=== PATIENT | female | born 1990 | race Caucasian/White ===

== ENCOUNTER 2017-03-26 18:34 | Inpatient (IN) ==
[2017-03-26] MEDS ORDERED: Vancomycin 1,000 MG in D5% in Water 250 ML IVPB ONE (19:17)
[2017-03-26] MEDS ORDERED: 0.9 % Sodium Chloride 1,000 ML IVC ONE (19:17)
--- NOTE | 2017-03-26 19:25 | Emergency Department Note ---
Disposition Clinical Impression: Abscess Disposition: Admitted As Inpatient Condition: Good Referrals: NONE,PCP [Primary Care Provider] - Forms: Work/School Release, ED Satisfaction Letter Time of Disposition: 22:32 Wound/Laceration HPI - General Chief Complaint: ED Wound/Laceration Stated Complaint: lump/abcess on throat Time Seen by Provider: 03/26/17 18:42 Source: patient Limitations: no limitations Nursing Notes Reviewed: Yes Vital Signs Reviewed: Yes - History of Present Illness HPI Narrative: 26 year old female presents to the ED for outpaeint therapy of ABX therapy for an abscess located on her sternal notch of her neck. Jayashree states that this popped up on Monday and that she was seen at urgent care where it was I/D and then placed on bactrim and then the redeness and swelling have been getting worse. Patient states denies fevers, nasuea, or vomitting, difficulty in breathing or swellling to her throat. Jayashree min she - Related Data Previous Rx's Medication Instructions Recorded Ibuprofen [Motrin] 600 mg PO Q8HR PRN #10 tab 04/29/16 Albuterol Sulfate [Albuterol 2 puff IH Q6HR PRN #1 [id number].[email or web address] 06/23/16 Inhaler] HYDROcodone/Acet 5/325 mg [[place] 1 tab PO Q6H PRN #8 tab 10/20/16 5-325 mg] Ibuprofen [Motrin] 800 mg PO Q8HR #30 tablet 03/24/17 Sulfamethoxazole/Trimeth DS 1 each PO BID #20 tablet 03/24/17 [Bactrim DS] Allergies Allergy/AdvReac Type Severity Reaction Status Date / Time Varenicline [From Chantix] Allergy Hallucinati Verified 10/20/16 19:43 ng Constitutional: Reports: other (neck abscess). Denies: fever, chills, weakness , weight change Eyes: Denies: eye pain, eye discharge, vision change ENT ED: Denies: ear pain, throat pain, dental pain, hearing loss, epistaxis, congestion, dysphagia Cardiovascular: Denies: chest pain, palpitations, dyspnea on exertion, edema, syncope Respiratory: Denies: cough, dyspnea, wheezes, hemoptysis, stridor Gastrointestinal: Denies: abdominal pain, nausea, vomiting, diarrhea, constipation, hematemesis, melena, hematochezia Genitourinary: Denies: dysuria, frequency, hematuria, discharge Musculoskeletal: Denies: back pain, neck pain, arthralgia, myalgia Integumentary: Denies: rash, abrasion, lesions Neurological: Denies: headache, weakness, numbness, paresthesias, confusion, abnormal gait, vertigo Psychiatric: Denies: anxiety, depression, suicidal thoughts, homicidal thoughts , auditory hallucinations, visual hallucinations Endocrine: Denies: fatigue Hematological/Lymphatic: Denies: easy bleeding, easy bruising Allergic/Immunologic: Denies: facial swelling, urticaria Past Medical History - Past Medical History Medical history: Reports: non-contributory, other Psychiatric history: Reports: no psych history [employer] history: Reports: bilateral tubal ligation - Social History Smoking Status: Current every day smoker Smokeless Tobacco Status: No Alcohol use: Reports: none Drug use: Reports: none Physical Exam - General Limitations: no limitations General appearance: in no apparent distress - Head Head exam: atraumatic, normocephalic, normal inspection - Eye Eye exam: Present: normal appearance, PERRL, EOMI - Expanded Eye Exam Pupils: Left: reactive - ENT ENT exam: normal exam, normal oropharynx, mucous membranes moist - Expanded ENT Exam External ear exam: Present: normal external inspection Mouth exam: Present: normal external inspection Teeth exam: Present: normal inspection Throat exam: Present: normal inspection - Neck Neck exam: Present: normal inspection, full ROM, trachea midline, other (1cm abscess on the sternal notch) - Chest Chest inspection: Present: normal inspection, symmetric chest wall rise - Respiratory Respiratory exam: Present: normal lung sounds bilaterally - Cardiovascular Cardiovascular exam: Present: normal rhythm, tachycardia, normal heart sounds - Abdominal Exam Abdominal exam: Present: soft, Non-Tender. Absent: tenderness, distention, guarding, rebound, rigidity - Extremities Exam Extremities exam: Present: normal inspection, full ROM. Absent: tenderness, pedal edema - Expanded Upper Extremity Exam Shoulder exam: Present: normal inspection, full ROM Arm exam: Present: normal inspection, full ROM Elbow exam: Present: normal inspection, full ROM Forearm/Wrist exam: Present: normal inspection, full ROM Hand exam: Present: normal inspection, full ROM Vascular exam: Normal: capillary refill, radial pulse - Expanded Lower Extremity Exam Hip/Pelvis exam: Present: normal inspection, full ROM Upper leg exam: Present: normal inspection, full ROM Knee exam: Present: normal inspection, full ROM Lower leg exam: Present: normal inspection, full ROM Ankle exam: Present: normal inspection, full ROM Foot/toe exam: Present: normal inspection, full ROM Neurovascular/Tendon exam: Absent: motor deficit, sensory deficit, tendon deficit - Back Exam Back exam: Present: normal inspection, full ROM. Absent: tenderness - Neurological Exam Neurological exam: Present: alert, oriented X3 - Expanded Neurological Exam Patient oriented to: Present: person, place, time Coma Scale Eye Opening: Spontaneous Coma Scale Motor Response: Obeys Commands Coma Scale Verbal Response: Oriented Coma Scale Total: 15 - Psychiatric Psychiatric exam: Present: normal affect, normal mood - Skin Skin exam: Present: warm, dry, intact, normal color Course Course Narrative: we will do a abscesss workup with admit to medicine due to failure of outpatinet therapy - Consultations Consultation #1: discussed case with Dr. Andrade and she accepts patinet for admission. Time: 22:32 Vital Signs Temperature 99.3 F 03/26/17 18:35 Pulse Rate 104 03/26/17 18:35 Respiratory Rate 20 03/26/17 18:35 Blood Pressure 128/82 03/26/17 18:35 O2 Sat by Pulse Oximetry 98 03/26/17 18:35 Temperature 99.3 F 03/26/17 18:35 Pulse Rate 100 03/26/17 18:42 Respiratory Rate 20 03/26/17 18:35 Blood Pressure 139/63 03/26/17 18:42 O2 Sat by Pulse Oximetry 100 03/26/17 18:42 Oxygen Delivery Oxygen Delivery Room Air Procedures - Abscess I/D Consent obtained: verbal consent Site: neck Sedation/analgesia: none Technique: incised with #11 blade Amount of fluid: 3 (cc) Irrigation: No Packing used?: none Complications: bleeding Wound/Laceration - Lab Data Result diagrams: 03/26/17 19:50 03/26/17 19:50 Lab Results 03/26/17 03/26/17 03/26/17 Range/Units 19:50 19:50 19:50 WBC 12.6 H (4.3-11.1) K/mcL RBC 4.16 (3.82-4.97) M/mcL Hgb 10.5 L (11.5-15.4) g/dL Hct 33.2 L (35.3-44.9) % MCV 79.8 L (83.0-100.0) fL MCH 25.2 L (28.0-33.3) pg MCHC 31.6 (31.6-35.5) g/dL RDW 15.0 H (11.5-14.5) % Plt Count 256 (140-400) K/mcL MPV 11.0 (9.4-12.4) fL Immature Gran % 0.4 (0-4) % Seg Neutrophils % 69.9 % Lymphocytes % 24.1 % Monocytes % 4.3 % Eosinophils % 0.9 % Basophils % 0.4 % Neutrophils # 8.8 (1.6-8.9) K/mcL Lymphocytes # 3.0 (0.6-4.6) K/mcL Monocytes # 0.5 (0.0-1.3) K/mcL Eosinophils # 0.1 (0.0-0.6) K/mcL Basophils # 0.1 (0.0-0.2) K/mcL Immature Plt Fraction 3.9 (1.1-6.1) % Sodium 141 (136-145) mEq/L Potassium 3.8 (3.5-4.5) mEq/L Chloride 111 H (98-109) mEq/L Carbon Dioxide 19 (19-29) mEq/L BUN 14 (7-20) mg/dL Creatinine 0.98 (0.57-1.11) mg/dL Est GFR ( Amer) > 60 (> 60) Est GFR (Non-Af Amer) > 60 (> 60) BUN/Creatinine Ratio 14 (6-26) Glucose 81 (70-99) mg/dL Calculated Osmolality 292 (280-300) Lactic Acid 0.9 (0.5-2.2) mmol/L Calcium 9.0 (8.6-10.8) mg/dL Total Bilirubin < 0.2 L (0.2-1.2) mg/dL AST 16 (5-34) Units/L ALT 22 (0-55) Units/L Alkaline Phosphatase 86 (38-126) Units/L Serum Total Protein 7.4 (6.0-8.3) g/dL Albumin 3.6 (3.5-5.0) g/dL Globulin 3.8 H (2.4-3.5) g/dL Albumin/Globulin Ratio 0.9 L (1.1-2.2) Serum , Qual (Negative) 03/26/17 Range/Units 20:44 WBC (4.3-11.1) K/mcL RBC (3.82-4.97) M/mcL Hgb (11.5-15.4) g/dL Hct (35.3-44.9) % MCV (83.0-100.0) fL MCH (28.0-33.3) pg MCHC (31.6-35.5) g/dL RDW (11.5-14.5) % Plt Count (140-400) K/mcL MPV (9.4-12.4) fL Immature Gran % (0-4) % Seg Neutrophils % % Lymphocytes % % Monocytes % % Eosinophils % % Basophils % % Neutrophils # (1.6-8.9) K/mcL Lymphocytes # (0.6-4.6) K/mcL Monocytes # (0.0-1.3) K/mcL Eosinophils # (0.0-0.6) K/mcL Basophils # (0.0-0.2) K/mcL Immature Plt Fraction (1.1-6.1) % Sodium (136-145) mEq/L Potassium (3.5-4.5) mEq/L Chloride (98-109) mEq/L Carbon Dioxide (19-29) mEq/L BUN (7-20) mg/dL Creatinine (0.57-1.11) mg/dL Est GFR ( Amer) (> 60) Est GFR (Non-Af Amer) (> 60) BUN/Creatinine Ratio (6-26) Glucose (70-99) mg/dL Calculated Osmolality (280-300) Lactic Acid (0.5-2.2) mmol/L Calcium (8.6-10.8) mg/dL Total Bilirubin (0.2-1.2) mg/dL AST (5-34) Units/L ALT (0-55) Units/L Alkaline Phosphatase (38-126) Units/L Serum Total Protein (6.0-8.3) g/dL Albumin (3.5-5.0) g/dL Globulin (2.4-3.5) g/dL Albumin/Globulin Ratio (1.1-2.2) Serum , Qual Negative (Negative)
[2017-03-26 19:57] LABS: Basophils # 0.1 K/mcL (0.0-0.2); Basophils % 0.4 %; Eosinophils # 0.1 K/mcL (0.0-0.6); Eosinophils % 0.9 %; Hematocrit 33.2 % (35.3-44.9); Hemoglobin 10.5 g/dL (11.5-15.4); Immature Granulocytes % 0.4 % (0-4); Immature Platelets 3.9 % (1.1-6.1); Lymphocytes % 24.1 %; Mean Corpuscular HGB Conc 31.6 g/dL (31.6-35.5); Mean Corpuscular Hemoglobin 25.2 pg (28.0-33.3); Mean Corpuscular Volume 79.8 fL (83.0-100.0); Monocytes # 0.5 K/mcL (0.0-1.3); Monocytes % 4.3 %; Neutrophils # 8.8 K/mcL (1.6-8.9); Platelet Count 256 K/mcL (140-400); Red Blood Count 4.16 M/mcL (3.82-4.97); Segmented Neutrophils % 69.9 %
[2017-03-26 20:10] LABS: Alanine Aminotransferase 22 Units/L (0-55); Albumin 3.6 g/dL (3.5-5.0); Albumin/Globulin Ratio 0.9 (1.1-2.2); Alkaline Phosphatase 86 Units/L (38-126); Aspartate Amino Transferase 16 Units/L (5-34); BUN/Creatinine Ratio 14 (6-26); Bilirubin,Total < 0.2 mg/dL (0.2-1.2); Blood Urea Nitrogen 14 mg/dL (7-20); Carbon Dioxide 19 mEq/L (19-29); Chloride 111 mEq/L (98-109); Globulin 3.8 g/dL (2.4-3.5); Glucose 81 mg/dL (70-99); Osmolality,Calculated 292 (280-300); Potassium 3.8 mEq/L (3.5-4.5); Sodium 141 mEq/L (136-145); Total Protein 7.4 g/dL (6.0-8.3); eGFR For African Americans > 60 (> 60); eGFR For Non-African Americans > 60 (> 60)
[2017-03-26] MEDS ORDERED: Piperacillin/Tazobactam 3.375 GM in D5% in Water (Mini-Bag+) 100 ML IVPB ONE (20:24)
[2017-03-26] MEDS ORDERED: Ondansetron 4 MG/2 ML VIAL IVP PRN (23:14)
[2017-03-26] MEDS ORDERED: Naloxone 0.4 MG/ML INJ IVP PRN (23:14)
[2017-03-26] MEDS ORDERED: Acetaminophen 325 MG TABLET PO PRN (23:14)
[2017-03-26] MEDS ORDERED: Ipratropium/Albuterol Neb 3 ML IH PRN (23:21)
--- NOTE | 2017-03-26 23:38 | Internal Med History&Physical ---
Date of Encounter: 03/26/17 Time of Encounter: 11:56 Assessment and Plan (1) Sepsis Current visit: Yes Status: Acute Patient meets sepsis criteria with tachycardia on presentation, leukocytosis with WBC >12, and neck cellulitis with abscess Patient's abscess was drained by the ER team and sent for culture Continue Vanco and Zosyn for now Follow wound and blood culture and de-escalate prn BP is WNL, Lactic acid is normal Qualifiers: Sepsis type: sepsis due to unspecified organism Qualified Code(s): A41.9 - Sepsis, unspecified organism (2) Abscess Current visit: Yes Status: Acute As above (3) Morbid obesity with BMI of 40.0-44.9, adult Current visit: Yes Status: Chronic Lifestyle modification (4) Tobacco abuse Current visit: Yes Status: Chronic Smokes 1/2 to 1PPD Declines counselling/NRT (5) Anemia Current visit: Yes Status: Chronic Microcytic anemia, possibly iron deficiency Send anemia work up with a.m labs Qualifiers: Anemia type: unspecified type Qualified Code(s): D64.9 - Anemia, unspecified Internal Medicine - H&P: HPI Chief complaint: Neck cellulitis Admitted From: Home Plans for Post Hospital Care: Home History of present illness: Ms. Feliciano is a 26 year old female with no significant medical history who had been to the ER two days ago for a neck furuncle with cellulitis, she was discharged home on Bactrim but represents with worsening pain and swelling She denies fever or chills Her lower neck was drained with a needle by ER and sample sent for culture She denies hx of trauma, insect bite, prior instrumentaton, she denies human bite She also reported subjective chills but no fever She denies any other symptoms Past Med Surg Social Fam HX - Past Medical History Medical history: non-contributory, other Psychiatric history: no psych history - Social History Smoking Status: Current every day smoker Smokeless Tobacco Status: No Alcohol use: none Drug use: none Internal Medicine - H&P: Meds Ibuprofen [Motrin] 800 mg PO Q8HR #30 tablet 03/24/17 [Rx] Sulfamethoxazole/Trimeth DS [Bactrim DS] 1 each PO BID #20 tablet 03/24/17 [Rx] 3 Allergy/AdvReac Type Severity Reaction Status Date / Time Varenicline [From Chantix] Allergy Hallucinati Verified 10/20/16 19:43 ng All Systems PM: A 10-system review of systems was performed and is negative for pertinent findings except as documented above in the HPI. - Constitutional Constitutional: chills, no fever(s), no night sweats - EENT Eyes: as per HPI, no change in vision, no discharge, no pain, no photophobia Nose, mouth and throat: no dysphagia, no nasal discharge, no neck pain, no sore throat - Cardiovascular Cardiovascular ROS IM: no chest pain, no diaphoresis, no dyspnea, no lightheadedness, no palpitations, no syncope - Respiratory Respiratory: no cough, no dyspnea, no wheezing, no excessive phlegm production - Gastrointestinal Gastrointestinal: no abdominal pain, no diarrhea, no hematemesis, no hematochezia, no melena, no nausea, no vomiting - Genitourinary Genitourinary: no change in urinary stream, no dysuria, no flank pain, no hematuria - Musculoskeletal Musculoskeletal ROS IM: no numbness, no tingling - Integumentary Integumentary IM: as per HPI - Neurological Neurological ROS: no confusion, no convulsions, no focal weakness, no numbness, no tingling, no tremor(s) - Hematologic/Lymphatic Hematologic/Lymphatic: no easy bruising - Constitutional Vitals: Temp Pulse Resp BP Pulse Ox 97.9 F 84 16 111/74 94 03/26/17 23:15 03/26/17 23:15 03/26/17 23:15 03/26/17 23:15 03/26/17 23:15 General appearance: Present: A&O X 3, morbidly obese, pleasant, no acute distress, answers questions appropriately - Head Head exam: Present: atraumatic, normocephalic - Eye Eye exam: Present: PERRL, conjuntiva pink, sclera anicteric Pupils: Present: PERRL - Neck Neck exam general surgery: Absent: lymphadenopathy Additional comments: Lower anterior neck ~2X2cm swelling, with some fluctuancy and surrounding cellulitis - Respiratory Respiratory exam: Present: CTAB. Absent: accessory muscle use, rales, rhonchi, wheezes - Cardiovascular Cardiovascular exam: Present: RRR, +S1, +S2. Absent: diastolic murmur, gallop, rubs, systolic murmur - GI/Abdominal GI/Abdominal exam: Present: normal bowel sounds, soft, no peritoneal signs. Absent: distended, tenderness - Extremities Exam Extremities exam: Present: warm, radial pulses palpable and symmetrical. Absent : calf tenderness, cyanotic, pedal edema - Neurological Exam Neurological exam: Present: alert, CN II-XII intact, oriented X3, no focal deficits. Absent: pronater drift, facial droop, speech deficit - Skin Skin exam: Present: dry, intact Internal Med - H&P Results - Labs CBC & Chem 7: 03/26/17 19:50 03/26/17 19:50
[2017-03-27] MEDS ORDERED: Vancomycin 1,000 MG in D5% in Water 250 ML IVPB ONE
[2017-03-27] MEDS: *HR* HYDROcodone/Acet 5/325 mg TABLET PO PRN ×4 (00:56→22:46)
[2017-03-27 04:26] LABS: Basophils # 0.1 K/mcL (0.0-0.2); Basophils % 0.5 %; Eosinophils # 0.1 K/mcL (0.0-0.6); Eosinophils % 1.1 %; Hematocrit 34.1 % (35.3-44.9); Hemoglobin 10.8 g/dL (11.5-15.4); Immature Granulocytes % 0.3 % (0-4); Lymphocytes # 3.5 K/mcL (0.6-4.6); Lymphocytes % 34.1 %; Mean Corpuscular HGB Conc 31.7 g/dL (31.6-35.5); Mean Corpuscular Hemoglobin 25.9 pg (28.0-33.3); Mean Corpuscular Volume 81.8 fL (83.0-100.0); Mean Platelet Volume 11.2 fL (9.4-12.4); Monocytes # 0.5 K/mcL (0.0-1.3); Monocytes % 4.8 %; Platelet Count 257 K/mcL (140-400); Red Blood Count 4.17 M/mcL (3.82-4.97); Red Cell Distribution Width 15.1 % (11.5-14.5); Segmented Neutrophils % 59.2 %
[2017-03-27 04:48] LABS: % Iron Saturation 12 % (15-50); Iron 37 mcg/dL (50-170); Transferrin 223 mg/dL (180-382)
[2017-03-27 05:08] LABS: Ferritin 16 ng/ml (5-204)
[2017-03-27] MEDS: Piperacillin/Tazobactam 3.375 GM in D5% in Water (Mini-Bag+) 100 ML IVPB SCH ×3 (05:18→19:50)
[2017-03-27] MEDS: *HR* Heparin 5,000 UNIT/ML VIAL SQ SCH ×3 (05:19→22:46)
[2017-03-27] MEDS ORDERED: Vancomycin 1,000 MG in D5% in Water 250 ML IVPB SCH (06:45)
[2017-03-27] MEDS ORDERED: Vancomycin 2,000 MG in D5% in Water 500 ML IVPB SCH (13:00)
--- NOTE | 2017-03-27 14:55 | Internal Med Progress Note ---
<Kalli Han - Last Filed: 03/27/17 14:53> Date of Encounter: 03/27/17 Time of Encounter: 14:53 - Assessment and plan (1) Sepsis Current Visit: Yes Status: Acute Assessment and plan: upon presentation, patient met sepsis criteria with tacycardia, leukocytosis souce of infection likely secondary to neck abscess, which was drained in the ER and sent for culture. Lactic acid .9 Plan: blood cultures pending wound cultures pending continue with vanc and zosyn and de-escalate antibiotics as appropriate. Qualifiers: Sepsis type: sepsis due to unspecified organism Qualified Code(s): A41.9 - Sepsis, unspecified organism (2) Abscess Current Visit: Yes Status: Acute Assessment and plan: plan as above. (3) Morbid obesity with BMI of 40.0-44.9, adult Current Visit: Yes Status: Chronic (4) Tobacco abuse Current Visit: Yes Status: Chronic Assessment and plan: patient smokes about 1/2-1PPD patient is declining counseling/NRT (5) Anemia Current Visit: Yes Status: Chronic Assessment and plan: microcytic anemia likely iron deficiency. iron profile shows ferritin of 16 and iron level 37. Plan: continue to monitor H/H started iron supplements. colace PRN for constipation. Qualifiers: Anemia type: unspecified type Qualified Code(s): D64.9 - Anemia, unspecified (6) DVT prophylaxis Current Visit: Yes Status: Acute Assessment and plan: Heparin SQ - Subjective Interval history: 26 year ld female evaluated at bedside. she was sitting up in bed and watching tv. she denies admits to nausea without vomiting. she denies diarrhea, fever, chills, chest pain, shortness of breath. she denies any further problems today. - Constitutional Vitals: Temp Pulse Resp BP Pulse Ox 98.1 F 79 16 114/71 97 03/27/17 11:26 03/27/17 11:26 03/27/17 11:26 03/27/17 11:26 03/27/17 11:26 General appearance: Present: A&O X 3, morbidly obese, pleasant, no acute distress, answers questions appropriately - Head Head exam: Present: atraumatic, normocephalic - Neck Neck exam general surgery: Present: supple, trachea midline Additional comments: furuncle located at base of neck/upper chest area. approxiately [id number] in size - Respiratory Respiratory exam: Present: CTAB - Cardiovascular Cardiovascular exam: Present: RRR, +S1, +S2 - GI/Abdominal GI/Abdominal exam: Present: normal bowel sounds, soft. Absent: distended, tenderness - Extremities Exam Extremities exam: Absent: cyanotic, pedal edema - Neurological Exam Neurological exam: Present: alert, oriented X3, no focal deficits - Psychiatric Psychiatric exam: Present: normal affect, normal mood - Skin Skin exam: Present: intact Internal Medicine: Result - Labs CBC & Chem 7: 03/27/17 04:02 03/26/17 19:50 Labs: Short CBC 03/27/17 Range/Units 04:02 WBC 10.2 (4.3-11.1) K/mcL Hgb 10.8 L (11.5-15.4) g/dL Hct 34.1 L (35.3-44.9) % Plt Count 257 (140-400) K/mcL Neutrophils # 6.0 (1.6-8.9) K/mcL Consult Discharge Plan - Plan Referrals: NONE,PCP [Primary Care Provider] - <Elias Morales - Last Filed: 03/27/17 19:23> Date of Encounter: 03/27/17 - Constitutional Vitals: Temp Pulse Resp BP Pulse Ox 98.0 F 76 16 105/67 98 03/27/17 18:48 03/27/17 18:48 03/27/17 18:48 03/27/17 18:48 03/27/17 18:48 Internal Medicine: Result - Labs CBC & Chem 7: 03/27/17 04:02 03/26/17 19:50 Labs: Short CBC 03/27/17 Range/Units 04:02 WBC 10.2 (4.3-11.1) K/mcL Hgb 10.8 L (11.5-15.4) g/dL Hct 34.1 L (35.3-44.9) % Plt Count 257 (140-400) K/mcL Neutrophils # 6.0 (1.6-8.9) K/mcL - Attending Attestation I examined this patient and my medical decision-making was reviewed with the Resident Physician, Dr. Han. I agree with the documented findings, disposition and treatment plan as described except to the extent set forth below. My findings are summarized below: On exam there is erythema and induration of the anterior neck, no discharge or fluctuance. Plan we will continue to treat her with broad-spectrum antibiotics for next cellulitis.
[2017-03-27] MEDS: Ibuprofen 600 MG TABLET PO PRN (19:51)
[2017-03-28] MEDS: Vancomycin 1,250 MG in D5% in Water 250 ML IVPB SCH ×2 (00:53→12:56)
[2017-03-28] MEDS: Piperacillin/Tazobactam 3.375 GM in D5% in Water (Mini-Bag+) 100 ML IVPB SCH ×3 (04:05→19:56)
[2017-03-28] MEDS: *HR* Heparin 5,000 UNIT/ML VIAL SQ SCH ×3 (06:07→22:17)
--- NOTE | 2017-03-28 06:44 | Internal Med Progress Note ---
<Kalli Han - Last Filed: 03/28/17 13:29> Date of Encounter: 03/28/17 Time of Encounter: 06:42 - Assessment and plan (1) Sepsis Current Visit: Yes Status: Acute Assessment and plan: upon presentation, patient met sepsis criteria with tacycardia, leukocytosis source of infection likely secondary to neck abscess, which was drained in the ER and sent for culture. Lactic acid .9 Plan: blood cultures showed no growth to date. wound cultures pending continue with vanc and zosyn and de-escalate antibiotics based on wound cultures. Qualifiers: Sepsis type: sepsis due to unspecified organism Qualified Code(s): A41.9 - Sepsis, unspecified organism (2) Abscess Current Visit: Yes Status: Acute Assessment and plan: plan as above. (3) Morbid obesity with BMI of 40.0-44.9, adult Current Visit: Yes Status: Chronic (4) Tobacco abuse Current Visit: Yes Status: Chronic Assessment and plan: patient smokes about 1/2-1PPD patient is declining counseling/NRT (5) Anemia Current Visit: Yes Status: Chronic Assessment and plan: microcytic anemia likely iron deficiency. iron profile shows ferritin of 16 and iron level 37. Plan: continue to monitor H/H started iron supplements. colace PRN for constipation. Qualifiers: Anemia type: unspecified type Qualified Code(s): D64.9 - Anemia, unspecified (6) DVT prophylaxis Current Visit: Yes Status: Acute Assessment and plan: Heparin SQ - Subjective Interval history: 26 year old female evaluated at bedside. she was sitting up in bed and watching tv. she denies admits to nausea without vomiting. she denies diarrhea, fever, chills, chest pain, shortness of breath. she denies any further problems today. - Constitutional Vitals: Temp Pulse Resp BP Pulse Ox 97.4 F L 54 16 92/52 97 03/28/17 03:42 03/28/17 03:42 03/28/17 03:42 03/28/17 03:42 03/28/17 03:42 General appearance: Present: A&O X 3, morbidly obese, pleasant, no acute distress, answers questions appropriately - Head Head exam: Present: atraumatic, normocephalic - Neck Neck exam general surgery: Present: supple, trachea midline Additional comments: [id number] abscess on neck that is erythematous and mildly swollen. - Respiratory Respiratory exam: Present: CTAB - Cardiovascular Cardiovascular exam: Present: RRR, +S1, +S2 - GI/Abdominal Additional comments: obese, soft, non distended, nontender, positive bowel sounds. - Extremities Exam Extremities exam: Absent: cyanotic, pedal edema - Neurological Exam Neurological exam: Present: alert, oriented X3, no focal deficits - Psychiatric Psychiatric exam: Present: normal affect, normal mood - Skin Skin exam: Present: intact Internal Medicine: Result - Labs CBC & Chem 7: 03/28/17 06:06 03/28/17 06:06 Consult Discharge Plan - Plan Referrals: NONE,PCP [Primary Care Provider] - <Elias Morales - Last Filed: 03/29/17 07:49> Date of Encounter: 03/28/17 - Constitutional Vitals: Temp Pulse Resp BP Pulse Ox 97.8 F 77 16 105/58 97 03/29/17 07:10 03/29/17 07:10 03/29/17 07:10 03/29/17 07:10 03/29/17 07:10 Internal Medicine: Result - Labs CBC & Chem 7: 03/29/17 05:05 03/29/17 05:05 Labs: Short CBC 03/29/17 Range/Units 05:05 WBC 6.1 (4.3-11.1) K/mcL Hgb 9.6 L (11.5-15.4) g/dL Hct 30.7 L (35.3-44.9) % Plt Count 227 (140-400) K/mcL Neutrophils # 3.1 (1.6-8.9) K/mcL BMP 03/29/17 05:05 Sodium 138 Potassium 4.2 Chloride 110 H Carbon Dioxide 22 BUN 16 Creatinine 0.71 Glucose 90 Calcium 8.7 - Attending Attestation I examined this patient and my medical decision-making was reviewed with the Resident Physician, Dr. Han. I agree with the documented findings, disposition and treatment plan as described except to the extent set forth below. I have independently obtained history and examined the patient and my findings are summarized below: She reports anterior cervical pain which radiates to the left side of the neck. On exam there is an area of redness and superficial subcutaneous tissue edema well-circumscribed in the anterior cervical region. Plan: Continue with IV vancomycin and IV Zosyn. We will consider repeating CT scan of the neck symptoms do not improve in the next 24 hours. She is at high risk for morbidity and complications due to IV vancomycin which requires intensive blood level monitoring for toxicity.
[2017-03-28 06:59] LABS: Basophils % 0.5 %; Eosinophils # 0.1 K/mcL (0.0-0.6); Eosinophils % 1.7 %; Hematocrit 33.6 % (35.3-44.9); Hemoglobin 10.6 g/dL (11.5-15.4); Immature Granulocytes % 0.2 % (0-4); Lymphocytes # 2.7 K/mcL (0.6-4.6); Lymphocytes % 47.1 %; Mean Corpuscular HGB Conc 31.5 g/dL (31.6-35.5); Mean Corpuscular Hemoglobin 25.8 pg (28.0-33.3); Mean Corpuscular Volume 81.8 fL (83.0-100.0); Mean Platelet Volume 11.6 fL (9.4-12.4); Monocytes # 0.3 K/mcL (0.0-1.3); Monocytes % 5.7 %; Neutrophils # 2.6 K/mcL (1.6-8.9); Platelet Count 216 K/mcL (140-400); Red Blood Count 4.11 M/mcL (3.82-4.97); Red Cell Distribution Width 15.1 % (11.5-14.5); Segmented Neutrophils % 44.8 %
[2017-03-28 07:09] LABS: BUN/Creatinine Ratio 19 (6-26); Blood Urea Nitrogen 13 mg/dL (7-20); Calcium 8.7 mg/dL (8.6-10.8); Carbon Dioxide 20 mEq/L (19-29); Chloride 109 mEq/L (98-109); Glucose 90 mg/dL (70-99); Osmolality,Calculated 286 (280-300); Potassium 4.2 mEq/L (3.5-4.5); Sodium 138 mEq/L (136-145); eGFR For African Americans > 60 (> 60); eGFR For Non-African Americans > 60 (> 60)
[2017-03-28] MEDS: *HR* HYDROcodone/Acet 5/325 mg TABLET PO PRN ×3 (07:59→16:12)
[2017-03-28] MEDS: Ibuprofen 600 MG TABLET PO PRN ×2 (09:52→18:34)
[2017-03-29] MEDS: Vancomycin 1,500 MG in D5% in Water 250 ML IVPB SCH ×2 (00:40→14:22)
[2017-03-29 05:22] LABS: Basophils % 0.3 %; Eosinophils # 0.1 K/mcL (0.0-0.6); Eosinophils % 1.5 %; Hematocrit 30.7 % (35.3-44.9); Hemoglobin 9.6 g/dL (11.5-15.4); Immature Granulocytes % 0.2 % (0-4); Lymphocytes # 2.6 K/mcL (0.6-4.6); Lymphocytes % 42.9 %; Mean Corpuscular HGB Conc 31.3 g/dL (31.6-35.5); Mean Corpuscular Hemoglobin 25.3 pg (28.0-33.3); Mean Corpuscular Volume 80.8 fL (83.0-100.0); Mean Platelet Volume 11.1 fL (9.4-12.4); Monocytes # 0.3 K/mcL (0.0-1.3); Monocytes % 4.9 %; Neutrophils # 3.1 K/mcL (1.6-8.9); Platelet Count 227 K/mcL (140-400); Red Cell Distribution Width 15.1 % (11.5-14.5); Segmented Neutrophils % 50.2 %
[2017-03-29 05:38] LABS: BUN/Creatinine Ratio 23 (6-26); Blood Urea Nitrogen 16 mg/dL (7-20); Calcium 8.7 mg/dL (8.6-10.8); Carbon Dioxide 22 mEq/L (19-29); Chloride 110 mEq/L (98-109); Glucose 90 mg/dL (70-99); Osmolality,Calculated 287 (280-300); Potassium 4.2 mEq/L (3.5-4.5); Sodium 138 mEq/L (136-145); eGFR For African Americans > 60 (> 60); eGFR For Non-African Americans > 60 (> 60)
[2017-03-29] MEDS: Piperacillin/Tazobactam 3.375 GM in D5% in Water (Mini-Bag+) 100 ML IVPB SCH ×2 (06:21→12:17)
[2017-03-29] MEDS: *HR* Heparin 5,000 UNIT/ML VIAL SQ SCH ×2 (06:21→14:22)
[2017-03-29] MEDS: *HR* HYDROcodone/Acet 5/325 mg TABLET PO PRN ×2 (11:02→16:34)
[2017-03-29] MEDS ORDERED: *HR* HYDROmorphone (PF) 1 MG/ML SYRINGE IVP ONE (11:26)
[2017-03-29 15:46] VITALS: BP 120/74
[2017-03-29] MEDS ORDERED: Lidocaine 1% 20 ML MDV INFILT ONE (16:15)
--- NOTE | 2017-03-29 16:48 | Discharge Summary ---
<Kalli Han - Last Filed: 03/29/17 16:43> Date of Encounter: 03/29/17 Time of Encounter: 16:43 - Discharge Diagnosis (1) Sepsis Priority: Primary Status: Acute Qualifiers: Sepsis type: sepsis due to unspecified organism Qualified Code(s): A41.9 - Sepsis, unspecified organism (2) Abscess Priority: Secondary Status: Acute (3) Morbid obesity with BMI of 40.0-44.9, adult Priority: Secondary Status: Chronic (4) Tobacco abuse Priority: Secondary Status: Chronic (5) Anemia Priority: Secondary Status: Chronic Qualifiers: Anemia type: unspecified type Qualified Code(s): D64.9 - Anemia, unspecified (6) DVT prophylaxis Priority: Secondary Status: Acute - Discharge Medications Prescriptions: cephALEXin [Keflex] 500 mg PO BID #14 capsule Home Medications: Acetaminophen [Tylenol] 650 mg PO Q6HR PRN tablet 03/29/17 [Rx] Ibuprofen [Motrin] 600 mg PO TID PRN tablet 03/29/17 [Rx] cephALEXin [Keflex] 500 mg PO BID #14 capsule 03/29/17 [Rx] Allergies/Adverse Reactions: 3 Allergy/AdvReac Type Severity Reaction Status Date / Time Varenicline [From Chantix] Allergy Hallucinati Verified 10/20/16 19:43 ng Date of admission: 03/26/17 23:17 Primary care physician: PCP NONE Consults: 03/28/17 13:03 Consult to Sheet Taker [CONS] Routine Reason for SW Consult: Pt on probation - Patient Status Disposition: Home, Self-Care Condition: Good Functional capacity at discharge: independent ambulation Overall status at discharge: patient is progressing back to baseline - Discharge Instructions Instructions: Cephalexin (By mouth), Abscess (GEN) Follow Up With: NONE,PCP [Primary Care Provider] - Additional Instructions: please see PCP within one week of discharge. Please call residency clinic to establish with PCP: [phone] Please finish course of antibiotics as prescribed. return to emergency department if abscess on neck grows, becomes worse, or if you develop fever/chills. - Diet and Activity Activity: increase activity as tolerated Diet: low fat, low cholesterol Hospital course: Ms. Feliciano is a 26 year old female with no significant past medical history. she arrived to [facility] on 03/26/17 with chief complaint of abscess at the base of her neck. Patient had been to ER two days prior for this and discharged home on bactrim, but had worsening pain and swelling. She was admitted for sepsis secondary to neck abscess. Patient had I/D done in the emergency room, and wound was drained and sent for culture. Her blood cultures were negative for growth. After admission, she was started on vancomycin and zosyn, which were discontinued after blood cultures resulted. Patient's abscess continued to become more erythematous and painful, so I&D was done on day of discharge, and a significant amount of white pustular material was taken out. Patient tolerated procedure well and had no complications. she was stable upon discharge , and was discharged home on Keflex. Plan: please see PCP within one week of discharge. Please call residency clinic to establish with PCP: [phone] Please finish course of antibiotics as prescribed. return to emergency department if abscess on neck grows, becomes worse, or if you develop fever/chills. - Time Spent with Patient Total time spent providing and/or coordinating discharge services: - Constitutional Vitals: Temp Pulse Resp BP Pulse Ox 98.4 F 81 16 120/74 98 03/29/17 15:46 03/29/17 15:46 03/29/17 15:46 03/29/17 15:46 03/29/17 15:46 General appearance: Present: A&O X 3, morbidly obese, pleasant, no acute distress, answers questions appropriately - Head Head exam: Present: atraumatic, normocephalic - Neck Neck exam general surgery: Present: supple, trachea midline Additional comments: [id number] abscess that was drained. - Respiratory Respiratory exam: Present: CTAB - Cardiovascular Cardiovascular exam: Present: RRR, +S1, +S2 - GI/Abdominal GI/Abdominal exam: Present: distended, normal bowel sounds, soft. Absent: tenderness - Extremities Exam Extremities exam: Absent: cyanotic, pedal edema - Neurological Exam Neurological exam: Present: alert, oriented X3, no focal deficits - Skin Skin exam: Present: intact <Elias Morales - Last Filed: 03/29/17 18:12> Date of Encounter: 03/29/17 Date of admission: 03/26/17 23:17 Primary care physician: PCP NONE Consults: 03/28/17 13:03 Consult to Sheet Taker [CONS] Routine Reason for SW Consult: Pt on probation - Patient Status Functional capacity at discharge: independent ambulation Overall status at discharge: patient is progressing back to baseline Hospital course: Ms. Feliciano is a 26 year old female - Time Spent with Patient Total time spent providing and/or coordinating discharge services: - Constitutional Vitals: Temp Pulse Resp BP Pulse Ox 98.4 F 81 16 120/74 98 03/29/17 15:46 03/29/17 15:46 03/29/17 15:46 03/29/17 15:46 03/29/17 15:46 - Attending Attestation I examined this patient and my medical decision-making was reviewed with the Resident Physician, Dr. Han. I agree with the documented findings, disposition and treatment plan as described except to the extent set forth below. I have independently obtained history and examined the patient and my findings are summarized below: Patient's area of redness has significantly decreased from yesterday. She completed 3 days of IV broad-spectrum antibiotic coverage. Initial culture reported no growth. I performed an incision and drainage of subcutaneous abscess which the patient tolerated well. Plan: We will start oral antibiotics and discharge her home.
[2017-03-29] MEDS ORDERED: Aminoglycoside Consult 1 EACH MC ONE (18:00)
--- NOTE | 2017-03-29 18:49 | Procedure Note ---
Date of procedure: 03/29/17 Pre-op diagnosis: Soft tissue abscess of the anterior wall and cervical area Post-op diagnosis: same Procedure: A timeout protocol was performed prior to initiating the procedure. The fluctuant area of the anterior neck was prepared and draped in the usual, sterile manner. The site was anesthetized with 1% lidocaine with epinephrine. A linear incision along the local skin lines was made and a moderate amount of purulent material expressed. The abcess was explored thoroughly and sequestered pockets were opened. Bleeding was minimal. Dry dressing was applied. Followup: The patient tolerated the procedure well without complications. Standard post-procedure care was explained and return precautions were given. Anesthesia: local Surgeon: Elias Morales Safety Lead: Kalli Han Estimated blood loss (cc): 1 Pathology: none sent Condition: stable Disposition: no change
== END 2017-03-29 18:01 | disposition home or self-care (01) | DRG 720 ==
LOC: EMEROO 18:34 → 3BNU 18:34 → SUATTDRO 23:17
PROVIDERS: ADMIT Internal Medicine; ATTEND Internal Medicine